=== PATIENT | female | born 1940 | race American Indian/Alaskan Native ===

== ENCOUNTER 2018-04-05 21:53 | Emergency (ER) | payer SELFPAY ==
[2018-04-05] MEDS ORDERED: ADRENALIN ONE (22:05)
[2018-04-05] MEDS ORDERED: SODIUM BICARBONATE IV ONE (22:05)
[2018-04-05] MEDS ORDERED: D50W (25GM) Syringe IV ONE (22:05)
--- NOTE | 2018-04-05 22:54 | Emergency Department Report ---
HPI - General Time Seen by Provider: 04/05/18 22:19 - HPI HPI: 77-year-old female presents to the emergency department via EMS from her home in cardiac arrest. The patient apparently was last seen awake and alive around 5 PM this evening. She was found by family about 9 PM unresponsive and not breathing. Patient's daughter is a nurse and started CPR while EMS was called. EMS found the patient pulseless and unresponsive and in asystole. She was intubated, they began ACLS protocol and the patient was transported to [facility]. She remained in asystole the entire time and received 2 rounds of epinephrine. The only past medical history that we are aware of is a history of CHF. ED Review of Systems ROS: Stated complaint: CARDIAC ARREST Other details as noted in HPI Comment: Unobtainable due to pts medical conditions Physical Exam - Physical Exam Physical Exam: GENERAL: Patient is ill-appearing and unresponsive. HENT: Normocephalic. Atraumatic. Patient has moist mucous membranes. EYES: Pupils are fixed and dilated. NECK: Supple. Trachea appears midline. CHEST/LUNGS: There are no spontaneous respirations. HEART/CARDIOVASCULAR: There are no spontaneous heart sounds. ABDOMEN: Abdomen is soft. There is no abdominal distention. SKIN: Skin is cool but dry. NEURO: Unresponsive. Does not withdraw to painful stimuli. Does not follow any commands. MUSCULOSKELETAL: There is no obvious deformity. There is no evidence of acute injury. No palpable femoral or radial pulses. ED Medical Decision Making - Medical Decision Making Patient presented in cardiac arrest. EMS had already done about 20 minutes of ACLS protocol and intubated the patient and gave 2 rounds of epinephrine. When she arrived, the patient was still pulseless and asystolic. Chest compressions continued immediately and the [facility]. There was bilateral breath sounds with bag valve ventilation and some condensation seen in the ET tube. They arrived around 9:55 PM. We did another 3 rounds of ACLS protocol including epinephrine, sodium bicarbonate. For each rhythm and pulse check the patient was asystolic and pulseless. After this, I took a bedside ultrasound and looked at the heart and there was absolutely no movement, squeeze or even fibrillation. Time of was called at 2205. I went and spoke with the patient's extended family including her daughter and they were notified of the patient's expiration and then given an opportunity to come back and see the patient. - Differential Diagnosis dysrhythmia, VT, PE Critical Care Time: Yes Critical care time in (mins) excluding proc time.: 15 Critical care attestation.: If time is entered above; I have spent that time in minutes in the direct care of this critically ill patient, excluding procedure time. Critical care time was spent on this patient and doing her initial evaluation, supervision of ACLS protocol, and discussion with the patient's family. Critical Care Time: 15 minutes ED Disposition Clinical Impression: Cardiac arrest, Respiratory arrest Disposition: DC-20 Is pt being admited?: No Referrals: PRIMARY CARE, [Primary Care Provider] - 3-5 Days Time of Disposition: 23:32
== END 2018-04-06 06:40 ==
LOC: ED 21:53
DX: I46.9 Cardiac arrest, cause unspecified (principal)
CPT/HCPCS: 31500; 92950; 99285; J0171